=== PATIENT | female | born 1990 | race Caucasian/White ===

== ENCOUNTER 2018-08-27 11:21 | Emergency (ER) | payer OTHER ==
[2018-08-27 11:34] VITALS: BP 134/83
[2018-08-27] MEDS ORDERED: METHOCARBAMOL 750 MG TABLET PO ONE (11:55)
[2018-08-27] MEDS ORDERED: KETOROLAC TROMETHAMINE 60 MG/2 ML SDV IM ONE (11:55)
--- NOTE | 2018-08-27 11:59 | ER Document Report ---
HPI - HPI Patient complains to provider of: Back pain Time Seen by Provider: 08/27/18 11:41 Pain Level: 5 Context: 27-year-old healthy female presents emergency department chief complaint of lower back pain. She has a history of a surgery for herniated disc. She was in her usual state of health last months mild problems with it. She recently traveled and Tuesday developed acute lower back pain that greatly limited her ability to ambulate and moved to the airport. He required a wheelchair. She denies any urinary retention, saddle paresthesia, weakness/numbness/tingling/paralysis of her lower extremities. Denies fever, denies IV drug use. No other complaints - REPRODUCTIVE Reproductive: DENIES: : Past Medical History - Social History Smoking Status: Never Smoker Family History: Reviewed & Not Pertinent Vertical Provider Document - CONSTITUTIONAL Notes: PHYSICAL EXAMINATION: Reviewed vital signs and charting by RN GENERAL: Alert, interacts well. No acute distress. HEAD: Normocephalic, atraumatic. EYES: Pupils equal and round. Extraocular movements intact. ENT: Oral mucosa moist, tongue midline. NECK: Full range of motion. Trachea midline. EXTREMITIES: Moves all 4 extremities spontaneously. No edema, No cyanosis. Positive straight leg raise test on the left side with positive pain on the left side with right straight leg raise test to resistance. Normal distal neurovascular exam bilateral lower extremities. PSYCH: Normal affect, normal mood. SKIN: Warm, dry, normal turgor. No rashes or lesions noted. - INFECTION CONTROL TRAVEL OUTSIDE OF THE [place] IN LAST 30 DAYS: No Course - Re-evaluation Re-evalutation: 08/27/18 11:59 Presentation of a well appearing patient complaining of acute on chronic back pain. No rapid progression of symptoms, systemic symptoms including fevers, chills, weight loss, history of recent bacterial infection, bilateral symptoms, numbness, weakness, difficulty walking, urinary retention or bowel incontinence, personal history of cancer, immunosuppression, diabetes, known AAA, or history of IV drug use. Exam is without point tenderness over vertebral bodies, pulsat ile abdominal mass, and patient has symmetric and intact lower extremity strength, sensation, and reflexes without clonus. 2+ symmetric medial malleolar and dorsalis pedis pulses Based on history and physical, I have a very low suspicion of a concerning etiology of pain including epidural compression syndrome, spinal infection, transverse myelitis, malignancy, abdominal aortic aneurysm, renal colic, acute lower extremity claudication, neurogenic claudication, ankylosing spondylitis, or other intra-abdominal process. Due to absence of concerning risk factors in history and physical as well as absence of rapidly progressive, severe, or bilateral symptoms, will defer imaging at this point. - Vital Signs Vital signs: Temp Pulse Resp BP Pulse Ox 97.4 F 82 16 134/83 H 98 08/27/18 11:33 08/27/18 11:33 08/27/18 11:33 08/27/18 11:33 08/27/18 11:33 Discharge - Discharge Clinical Impression: Lower back pain Qualifiers: Chronicity: acute Back pain laterality: left Sciatica presence: with sciatica Sciatica laterality: sciatica of left side Qualified Code(s): M54.42 - Lumbago with sciatica, left side Disposition: HOME, SELF-CARE Additional Instructions: You have been seen in the Emergency Department (ED) today for back pain. Your workup and exam have not shown any acute abnormalities and you are likely suffering from muscle strain or possible problems with your discs, but there is no treatment that will fix your symptoms at this time. Please take Motrin 600 mg every 6 hours and/or Tylenol every 6 hours for pain/inflammation. You should also purchase a local lidocaine cream such as "aspercreme with lidocaine" and use per bottle instructions to the affected area. Apply heat to the area as often as you are able. Continue to keep active and avoid prolonged periods of bed rest. Please follow up with your doctor as soon as possible regarding today's ED visit and your back pain. Return to the ED for worsening back pain, fever, weakness or numbness of either leg, or if you develop either (1) an inability to urinate or have bowel movements, or (2) loss of your ability to control your bathroom functions (if you start having "accidents"), or if you develop other new symptoms that concern you.concern you. Referrals: TANVI HERNANDES MD [Primary Care Provider] - Follow up as needed
== END 2018-08-27 12:34 | disposition home or self-care (01) ==
LOC: ER 11:21
DX: M54.42 Lumbago with sciatica, left side (principal)
CPT/HCPCS: 99283; 96372; J1885; J3490

== ENCOUNTER 2019-12-03 18:29 | Emergency (ER) | payer OTHER ==
[2019-12-03] MEDS ORDERED: LIDOCAINE 1% INJ-PF (10 MG/ML) 30 ML SDV INJ ONE (19:30)
--- NOTE | 2019-12-03 19:31 | ER Document Report ---
ED Animal Bite - General Chief Complaint: Dog Bite Stated Complaint: DOG BITE/RIGHT HAND,THUMB Time Seen by Provider: 12/03/19 19:08 Primary Care Provider: Maritza Starks [Outside] - Follow up in 1 week TRAVEL OUTSIDE OF THE [place] IN LAST 30 DAYS: No - HPI Notes: 29-year-old female to the emergency department with complaints of a dog bite to her right thumb. She is up-to-date on her [employer]. station. She states she was trying to separate Her 2 dogs who were in a fight when she accidentally was bitten. They are up-to-date on their rabies immunizations. Denies any decrease in sensation or decrease in range of motion. She is right-hand dominant. - Related Data Allergies/Adverse Reactions: codeine [Codeine] Adverse Reaction (Verified 08/27/18 11:26) Nausea Past Medical History - General Information source: Patient - Social History Smoking Status: Current Every Day Smoker Frequency of alcohol use: Social Drug Abuse: None Family History: Reviewed & Not Pertinent Renal/ Medical History: Denies: Hx Peritoneal Dialysis Past Surgical History: Reports: Hx Orthopedic Surgery - left shoulder/right tibia/back/right wrist/left knee Review of Systems - Review of Systems Constitutional: denies: Chills, Fever EENT: No symptoms reported Cardiovascular: denies: Chest pain, Palpitations, Syncope, Dizziness, Lightheaded Respiratory: denies: Cough, Short of breath Gastrointestinal: denies: Abdominal pain, Diarrhea, Vomiting Genitourinary: No symptoms reported Skin: See HPI - Laceration to the right thumb from dog bite Neurological/Psychological: No symptoms reported -: Yes All other systems reviewed and negative Physical Exam - Vital signs Vitals: Temp Pulse Resp BP Pulse Ox 99.0 F 121 H 20 154/107 H 99 12/03/19 18:43 12/03/19 18:43 12/03/19 18:43 12/03/19 18:43 12/03/19 18:43 Interpretation: Normal - General General appearance: Appears well, Alert - HEENT Head: Normocephalic, Atraumatic Eyes: Normal Pupils: PERRL - Respiratory Respiratory status: No respiratory distress Chest status: Nontender Breath sounds: Normal Chest palpation: Normal - Cardiovascular Rhythm: Regular Heart sounds: Normal auscultation Murmur: No - Abdominal Inspection: Normal Distension: No distension Bowel sounds: Normal Tenderness: Nontender Organomegaly: No organomegaly - Extremities Notes: There is a dog bite to the right at the base by the webbing. Bleeding is controlled. It does require suturing. There is another small puncture wound to the dorsum of the thumb. All fingers with full range of motion against resistance with 5 out of 5 strength in testing of both flexor tendons as well as extensor tendons. Thumb opposition is well intact against resistance with 5 out of 5 strength. Cap refill is less than 2 seconds. Sensation appears to be grossly intact - Neurological Neuro grossly intact: Yes Cognition: Normal Orientation: AAOx4 [place] Coma Scale Eye Opening: Spontaneous [place] Coma Scale Verbal: Oriented [place] Coma Scale Motor: Obeys Commands [place] Coma Scale Total: 15 Speech: Normal Motor strength normal: LUE, RUE, LLE, RLE Additional motor exam normals: Equal senior controls analyst Sensory: Normal - Psychological Associated symptoms: Normal affect, Normal mood - Skin Skin Temperature: Warm Skin Moisture: Dry Skin Color: Normal Skin irregularity: Laceration - See extremities for further discussion of dog bite Course - Re-evaluation Re-evalutation: Impression: Dog bite to the right thumb. Patient tolerated repair well. Will start on antibiotics. Encouraged completion of antibiotics. Patient is to return if any worsening symptoms to include worsening pain, fevers, redness, purulent discharge. Patient agrees with the plan. - Vital Signs Vital signs: Temp Pulse Resp BP Pulse Ox 99.3 F 82 16 118/72 97 12/03/19 21:28 12/03/19 21:28 12/03/19 21:28 12/03/19 21:28 12/03/19 21:28 12/06/19 07:38 Temp Pulse Resp BP Pulse Ox 99.3 F 82 16 118/72 97 12/03/19 21:28 12/03/19 21:28 12/03/19 21:28 12/03/19 21:28 12/03/19 21:28 Weight/Height Weight 113.1 kg Height 5 ft 3 in noted improved HR from arrival. - Diagnostic Test Radiology reviewed: Image reviewed, Reports reviewed Procedures - Laceration/Wound Repair Right Volar Finger Wound length (cm): 2 Wound's Depth, Shape: Superficial Laceration pre-procedure: Betadine prep applied, Sterile drapes applied, Shur- Clens applied Anesthetic type: 1% Lidocaine Volume Anesthetic (mLs): 3 Wound explored: Clean, No foreign body removed Irrigated w/ Saline (mLs): 250 Wound Debrided: Minimal Wound Repaired With: Sutures Suture Size/Type: 4:0, Ethilon Number of Sutures: 5 Post-procedure wound care: Splint applied Post-procedure NV exam normal: Yes Complications: Yes Discharge - Discharge Clinical Impression: Dog bite, hand Qualifiers: Encounter type: initial encounter Laterality: right Qualified Code(s): S61.451A - Open bite of right hand, initial encounter Condition: Stable Disposition: HOME, SELF-CARE Instructions: Animal Bites ([facility]), Laceration Care ([facility]) Additional Instructions: KEEP WOUND CLEAN AND DRY. RETURN IF WORSENING PAIN, FEVERS, PURULENT DRAINAGE, REDNESS/INCREASED SWELLING. Prescriptions: Ondansetron [Zofran Odt 4 mg Tablet] 1 - 2 tab PO Q4HP PRN #10 tab.rapdis PRN Reason: Amoxicillin/Potassium Clav [Augmentin 875-125 Tablet] 1 tab PO NOW #20 tablet Referrals: [facility] [Outside] - Follow up in 1 week
--- NOTE | 2019-12-03 20:21 | RADIOLOGY REPORT (SQ) ---
EXAM DESCRIPTION: X-ray, three views of the right hand CLINICAL HISTORY: 29 years Female, right hand dog bite COMPARISON: None. FINDINGS: A soft tissue dressing is identified at the thumb. Bone mineralization is normal. Alignment of the hand is anatomic. No fracture. No radiopaque foreign body. No erosions or periostitis. No air is seen in the soft tissues. IMPRESSION: No fracture. No acute process.
[2019-12-03] MEDS ORDERED: BACITRACIN ZINC OINTMENT 15 GM TP ONE (21:10)
[2019-12-03 21:32] VITALS: BP 118/72
== END 2019-12-03 21:39 | disposition home or self-care (01) ==
LOC: ER 18:29
DX: S61.051A Open bite of right thumb without damage to nail, initial encounter (principal); W54.0XXA Bitten by dog, initial encounter; Y93.K9 Activity, other involving animal care; F17.200 Nicotine dependence, unspecified, uncomplicated
CPT/HCPCS: 99283; 73130; 12001; J3490 ×2